=== PATIENT | female | born 2000 | race Two or more races ===

== ENCOUNTER 2020-12-23 16:30 | Emergency (ER) | payer OTHER ==
[~2020-12-23] VITALS: Ht 160 cm; Wt 54.4 kg
[2020-12-23] MEDS ORDERED: FLUCONAZOLE200 MG PO (17:31)
[2020-12-23] MEDS ORDERED: METRONIDAZOLE500 MG PO (17:31)
== END 2020-12-23 17:41 | disposition home or self-care (01) ==
LOC: ER 16:30
DX: N76.0 Acute vaginitis (principal)

== ENCOUNTER 2023-06-05 23:18 | Emergency (ER) | payer OTHER ==
[~2023-06-05] VITALS: Ht 160 cm; Wt 54.4 kg
[~2023-06-05 23:18] MED LIST: FLUCONAZOLE200 MG PO; METRONIDAZOLE500 MG PO
[2023-06-06] MEDS ORDERED: KETO10TA2 PO (03:37)
== END 2023-06-06 03:48 ==
LOC: ER 23:18
DX: N83.209 Unspecified ovarian cyst, unspecified side (principal); Z88.1 Allergy status to other antibiotic agents

== ENCOUNTER 2025-05-16 22:42 | Emergency (ER) | payer OTHER ==
[~2025-05-16] VITALS: Ht 160 cm; Wt 61.2 kg
[~2025-05-16 22:42] MED LIST changes: +KETO10TA2 PO
[2025-05-17] MEDS ORDERED: RINGERS SOLUTION,LACTATED 1,000 ML IV STA (00:32)
[2025-05-17 01:08] LABS: BASO % 0.3 % (0.1-1.2); EOS # 0.11 (0.04-0.54); EOS % 1.4 % (0.7-7.0); LYMPH # 1.37 (1.18-3.74); LYMPH % 17.9 % (19.3-53.1); MEAN PLATELET VOLUME 9.90 fl (9.4-12.4); MONO # 0.59 (0.24-0.82); MONO % 7.7 % (4.7-12.5); NEUT # 5.53 (1.56-6.13); NEUT % 72.4 % (34.0-71.1); RED CELL DISTRIBUTION WIDTH 13.6 % (11.6-14.4)
[2025-05-17 01:56] LABS: URINE APPEARANCE Error; URINE BILIRRUBIN Negative (NEGATIVE); URINE BLOOD Negative; URINE COLOR Yellow; URINE GLUCOSE Negative (NEGATIVE); URINE KETONE Negative (NEGATIVE); URINE LEUKOCYTE Negative; URINE NITRATE Negative; URINE PROTEIN Negative (NEGATIVE); URINE UROBILINOGEN 0.2 E.U./dl
[2025-05-17 01:59] LABS: URINE BACTERIA 136.8 uL (0.0-1933); URINE EPITHELIAL CELLS 4.2 uL (0.0-38.8); URINE WBC 8.2 uL (0.0-23.2)
[2025-05-17 02:00] LABS: INR < 0.93
[2025-05-17 02:20] LABS: ALT/SGPT 23.0 U/L (12-78); AST/SGOT 22.0 U/L (15-37); BILIRUBIN TOTAL 0.13 mg/dL (0.3-1.2); BUN CREA RATIO 14.0 (7.0-25.0); CREATININE SERUM 0.63 mg/dL (0.55-1.02); GFR 113.35; GLOBULINA 3.7 G/DL (2.4-3.5); GLUCOSE FASTING 88.0 mg/dL (65-100); OSMOLALITY SERUM 276.0 MOSM/KG (275-295)
[2025-05-17 02:40] LABS: HCG QUANTITATIVE 82570.0 mUI/mL (1-3)
[2025-05-17 02:41] LABS: URINE CAST 0.00 uL (0.0-1.40); URINE RBC 1.0 uL (0.0-20.8)
== END 2025-05-17 03:34 | disposition home or self-care (01) ==
LOC: ER 22:48
DX: O99.891 Other specified diseases and conditions complicating pregnancy (principal); R10.2 Pelvic and perineal pain; Z3A.13 13 weeks gestation of pregnancy